=== PATIENT | male | born 1980 | race Caucasian/White ===

== ENCOUNTER 2018-07-09 12:50 | Emergency (ER) | payer OTHER ==
[2018-07-09 13:41] VITALS: BP 154/85
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
== END 2018-07-09 14:45 | disposition home or self-care (01) ==
LOC: UCCORT 12:50
DX: T65.891A Toxic effect of other specified substances, accidental (unintentional), initial encounter (principal); T25.422A Corrosion of unspecified degree of left foot, initial encounter; T25.421A Corrosion of unspecified degree of right foot, initial encounter; T32.0 Corrosions involving less than 10% of body surface; Y93.89 Activity, other specified; Y92.9 Unspecified place or not applicable; Z88.0 Allergy status to penicillin; F17.210 Nicotine dependence, cigarettes, uncomplicated
CPT/HCPCS: 99202; G0463

== ENCOUNTER 2019-07-09 07:22 | Emergency (ER) | payer OTHER ==
[2019-07-09 07:38] VITALS: BP 152/87
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
== END 2019-07-09 08:53 | disposition home or self-care (01) ==
LOC: UCCORT 07:22
DX: S00.83XA Contusion of other part of head, initial encounter (principal); S06.0X0A Concussion without loss of consciousness, initial encounter; M12.58 Traumatic arthropathy, other specified site; Y04.2XXA Assault by strike against or bumped into by another person, initial encounter; Y92.9 Unspecified place or not applicable; K02.9 Dental caries, unspecified; Z88.0 Allergy status to penicillin; F17.200 Nicotine dependence, unspecified, uncomplicated
CPT/HCPCS: 70486; 99211; G0463